=== PATIENT | male | born 1940 | race Caucasian/White ===

== ENCOUNTER 2019-06-15 07:08 | Day surgery (SDC) | payer MEDICARE ==
[~2019-06-15 07:08] MED LIST: DORZOLAMIDE HCL 2%/TIMOLOL MALEAT 0.5% OPH SOLN 10 ML OD PRN; KETOROLAC TROMETHAMINE 0.45% 4 DROP/0.4 ML DROPERETTE OD PRN
[2019-06-15] MEDS ORDERED: ONDANSETRON HCL INJ/PF 4 MG/2 ML SDV ONE (07:17)
[2019-06-15] MEDS ORDERED: FENTANYL CITRATE INJ/PF 100 MCG/2 ML AMPUL ONE (07:17)
[2019-06-15] MEDS ORDERED: MIDAZOLAM 2 MG/2 ML INJ ONE (07:17)
[2019-06-15] MEDS: TROPICAMIDE 1% OPH SOLN 15 ML OD PRN ×3 (07:38→07:58)
[2019-06-15] MEDS: CYCLOPENTOLATE 0.2%/PHENYLEPHRINE 1% OPH SOLN 2 ML OD PRN ×3 (07:38→07:58)
[2019-06-15] MEDS: BESIFLOXACIN HCL 0.6% OPH SUSP 5 ML BOTTLE OD PRN ×3 (07:38→08:31)
[2019-06-15] MEDS ORDERED: EPINEPHRINE INJ/PF 1 MG/1 ML AMPULE ONE (07:39)
[2019-06-15] MEDS ORDERED: LIDOCAINE 1%/PHENYLEPHRINE 1.5% 1 ML VIAL ONE (07:39)
[2019-06-15] MEDS: TETRACAINE HCL 0.5% OPH SOLN 4 ML OD PRN ×3 (07:39→08:12)
[2019-06-15] MEDS ORDERED: CHONDR SU A NA/HYALUR INTRAOC KIT (SURGICARE) ONE (07:39)
[2019-06-15] MEDS ORDERED: TOBRAMYCIN SULFATE/DEXAMETH OPH OINTMENT 3.5 GM ONE (07:39)
== END 2019-06-15 09:09 | disposition home or self-care (01) ==
LOC: SC 07:08
PROVIDERS: ATTEND Ophthalmology
DX: H25.11 Age-related nuclear cataract, right eye (principal); Z87.891 Personal history of nicotine dependence; E78.00 Pure hypercholesterolemia, unspecified; I10 Essential (primary) hypertension; I48.91 Unspecified atrial fibrillation; E11.9 Type 2 diabetes mellitus without complications; Z79.84 Long term (current) use of oral hypoglycemic drugs
CPT/HCPCS: 82962; 00142; 66984; V2632; J2250; J3490 ×2; A9270 ×2; J0171; J2405; J2370; 142; J3010

== ENCOUNTER 2020-07-19 10:18 | Inpatient (IN) | payer MEDICARE ==
[2020-07-19] MEDS ORDERED: IPRATROPIUM/ALBUTEROL 0.5-2.5 MG/3 ML AMPUL NEB ONE ×2 (10:36→10:41)
[2020-07-19] MEDS ORDERED: METHYLPREDNISOLONE INJ 125 MG/2 ML SDV IV ONE (10:42)
--- NOTE | 2020-07-19 10:56 | ER Document Report ---
Entered by MT BERG SCRIBE 07/19/20 1035 Acting as scribe for:GENIE CHILDERS MD ED Respiratory Problem - General Chief Complaint: Breathing Difficulty Stated Complaint: DIFFICULTY BREATHING Time Seen by Provider: 07/19/20 10:27 Mode of Arrival: Medic Information source: Patient, Relative, Emergency Med Personnel Cannot obtain history due to: Dementia Notes: This 80 year old demented male patient with hypertension, hyperlipidemia, diabetes mellitus type 2, and atrial fibrillation on Coumadin presents to the emergency department today with complaints of being "pale, diaphoretic, and short of breath" this morning per EMS. Patient himself is a terrible historian and is really unable to provide any meaningful history. He states "do not listen to my " and that is about the extent of the information he provides. It sounds like his called EMS this morning but he is unable to say why. Reportedly the patient was discharged from [facility] yesterday but he is not able to say why, but it was mentioned that he tested positive for COVID-19 yesterday. Patient's arrived and gave better history. Patient is normally alert and oriented. He spent 5 days at [facility] with Covid pneumonia and was discharged yesterday. Yesterday he was very weak and barely able to walk. She states when he laid down that evening around 11 PM his breathing started getting worse and has gotten progressively worse throughout the night. She states she was not sent home on any new medications. TRAVEL OUTSIDE OF THE [place] IN LAST 30 DAYS: Yes - Related Data Allergies/Adverse Reactions: No Known Allergies Allergy (Verified 06/15/19 07:41) Past Medical History - General Information source: Patient, Relative, Emergency Med Personnel Cannot obtain history due to: Other - Social History Smoking Status: Unknown if Ever Smoked Cigarette use (# per day): No Chew tobacco use (# tins/day): No Smoking Education Provided: No Frequency of alcohol use: None Drug Abuse: None Lives with: Spouse/Significant other Family History: Reviewed & Not Pertinent - Past Medical History Cardiac Medical History: Reports: Hx Atrial Fibrillation, Hx Hypercholesterolemia, Hx Hypertension Endocrine Medical History: Reports: Hx Diabetes Mellitus Type 2 Surgical Hx: Negative Review of Systems - Review of Systems -: Yes ROS unobtainable due to patient's medical condition - demented, terrible historian Physical Exam - Vital signs Vitals: Pulse Ox 86 L 07/19/20 10:21 - Notes Notes: Physical Exam: General: Alert, terrible historian. Saturating at 85% on non-rebreather mask. HEENT: Normocephalic. Atraumatic. PERRL. Extraocular movements intact. Oropharynx clear. Dry oral mucosa. Neck: Supple. Non-tender. Respiratory: Moderate respiratory distress. Rales and wheezing bilaterally. Accessory muscle usage. Cardiovascular: Irregularly irregular, tachycardic into the 120s. Abdominal: Normal Inspection. Non-tender. No distension. Normal Bowel Sounds. Back: No gross abnormalities. Extremities: Moves all four extremities. Upper extremities: Normal inspection. Normal ROM. Lower extremities: Pitting edema to feet/ankles bilaterally. Chronic skin thickening. Normal ROM. Neurological: Normal Speech. Demented, terrible historian. Psychological: Normal affect. Normal Mood. Skin: Chronic skin thickening and discoloration to bilateral lower extremities. Course - Vital Signs Vital signs: Temp Pulse Resp BP Pulse Ox 8 L 108/70 75 L 07/19/20 16:36 07/19/20 15:08 07/19/20 16:36 - Laboratory Results Result Diagrams: 07/19/20 14:13 07/19/20 10:32 Laboratory Results Interpreted: 07/19/20 07/19/20 07/19/20 10:32 10:32 10:32 PT D-Dimer Carbonic Acid ABG pH ABG pCO2 ABG pO2 ABG O2 Saturation Chloride 97 L Carbon Dioxide 32 H BUN 68 H Creatinine 1.72 H Est GFR ( Amer) 47 L Est GFR (MDRD) Non-Af 39 L Glucose 181 H Lactic Acid 4.3 H Magnesium 2.9 H Ferritin 947.00 H Total Bilirubin 7.3 H Direct Bilirubin 2.7 H AST 204 H ALT 67 H Alkaline Phosphatase 183 H Creatine Kinase 486 H CK-MB (CK-2) 10.20 H C-Reactive Protein 43.9 H Total Protein 8.3 H Urine Protein Urine Glucose (UA) Urine Blood 07/19/20 07/19/20 07/19/20 10:42 11:59 12:55 PT 38.6 H D-Dimer > 20.00 H* Carbonic Acid 1.02 L ABG pH 7.46 H ABG pCO2 33.8 L ABG pO2 46.3 L ABG O2 Saturation 85.1 L Chloride Carbon Dioxide BUN Creatinine Est GFR ( Amer) Est GFR (MDRD) Non-Af Glucose Lactic Acid Magnesium Ferritin Total Bilirubin Direct Bilirubin AST ALT Alkaline Phosphatase Creatine Kinase CK-MB (CK-2) C-Reactive Protein Total Protein Urine Protein 100 H Urine Glucose (UA) 50 H Urine Blood LARGE H Critical Laboratory Results Reviewed: Yes Attending or Supervising Physician who Reviewed Labs: GENIE CHILDERS - Radiology Results Radiology Results Interpreted: 07/19/20 12:22 Chest x-ray shows bilateral hazy opacities. Critical Radiology Results Reviewed: No Critical Results - EKG Interpretation by Me EKG shows normal: [place], Intervals, QRS Complexes, ST-T Waves Rate: Tachycardia Rhythm: A.Fib [place]/QRS: RBBB, LAHB/LAFB When compared to previous EKG there are: Previous EKG unavailable Critical Care Note - Critical Care Note Total time excluding time spent on procedures (mins): 40 Comments: At least 40 minutes spent evaluating the patient, reviewing prior records and comparing lab work and previous exams. Time spent treating the patient and reevaluations to evaluate response to treatments. Time spent discussing the case with the hospitalist for this critical care admission. Discharge - Discharge Clinical Impression: Pneumonia due to 2019-nCoV, Hypoxemia, Chronic atrial fibrillation, Dehydration Condition: Serious Disposition: ADMITTED INPATIENT Admitting Provider: Taty (Hospitalist) Unit Admitted: IMCU I personally performed the services described in the documentation, reviewed and edited the documentation which was dictated to the scribe in my presence, and it accurately records my words and actions.
[2020-07-19 11:09] LABS: ALKALINE PHOSPHATASE 183 U/L (38-126); ANION GAP 9 (5-19); ASPARTATE AMINO TRANSFERASE 204 U/L (17-59); BILIRUBIN,DIRECT 2.7 mg/dL (0.0-0.4); BILIRUBIN,TOTAL 7.3 mg/dL (0.2-1.3); BLOOD UREA NITROGEN 68 mg/dL (7-20); C-REACTIVE PROTEIN 43.9 mg/L (<10.0); CALCIUM 8.8 mg/dL (8.4-10.2); CARBON DIOXIDE 32 mmol/L (22-30); CHLORIDE 97 mmol/L (98-107); CREATINE KINASE 486 U/L (55-170); GLUCOSE 181 mg/dL (75-110); POTASSIUM 4.2 mmol/L (3.6-5.0); TOTAL PROTEIN 8.3 g/dL (6.3-8.2)
[2020-07-19 11:18] LABS: CREATINE KINASE MB 10.2 ng/mL (<4.55)
[2020-07-19] MEDS ORDERED: LORAZEPAM INJ 2 MG/1 ML VIAL IV ONE ×2 (11:20→13:00)
[2020-07-19 11:29] LABS: TROPONIN I 1.42 ng/mL
[2020-07-19 11:55] LABS: ARTERIAL BLOOD BASE EXCESS 0.5 mmol/L; ARTERIAL BLOOD FIO2 4L; ARTERIAL BLOOD H2CO3 1.02 mmol/L (1.05-1.35); ARTERIAL BLOOD HCO3 23.6 mmol/L (20-24); ARTERIAL BLOOD O2 SATURATION 85.1 % (94-98); ARTERIAL BLOOD PCO2 33.8 mmHg (35-45); ARTERIAL BLOOD PH 7.46 (7.35-7.45); ARTERIAL BLOOD PO2 46.3 mmHg (80-100); ARTERIAL BLOOD TOTAL CO2 24.6 mmol/L (23-27)
--- NOTE | 2020-07-19 12:10 | RADIOLOGY REPORT (SQ) ---
EXAM DESCRIPTION: CHEST SINGLE VIEW IMAGES COMPLETED DATE/TIME: 07/19/2020 11:28 am REASON FOR STUDY: sob COMPARISON: None. EXAM PARAMETERS: NUMBER OF VIEWS: 2 views. TECHNIQUE: 2 frontal radiographics of the chest acquired. RADIATION DOSE: NA LIMITATIONS: None. FINDINGS: LUNGS AND PLEURA: Bilateral hazy airspace and interstitial opacities. No large pleural ef fusion. No pneumothorax. MEDIASTINUM AND HILAR STRUCTURES: No masses. Contour normal. HEART AND VASCULAR STRUCTURES: Cardiomegaly. Normal vasculature. BONES: No acute findings. HARDWARE: None in the chest. OTHER: No other significant finding. IMPRESSION: Bilateral hazy airspace and interstitial opacities, which may represent pulmonary edema and/or infection. Cardiomegaly. TECHNICAL DOCUMENTATION: JOB ID: [id number] 2010 [employer]- All Rights Reserved Reading location - IP/workstation name: [email or web address]
[2020-07-19 12:14] LABS: PROTHROMBIN TIME 38.6 SEC (11.4-15.4)
[2020-07-19] MEDS ORDERED: NORMAL SALINE 1000 ML 1,000 ML IV ONE (12:23)
[2020-07-19 13:30] LABS: APPEARANCE,URINE CLOUDY; BILIRUBIN,URINE NEGATIVE (NEGATIVE); COLOR,URINE AMBER; GLUCOSE, URINE 50 mg/dL (NEGATIVE); KETONES,URINE NEGATIVE (NEGATIVE); LEUKOCYTE ESTERASE,URINE NEGATIVE (NEGATIVE); NITRITE,URINE NEGATIVE (NEGATIVE); PROTEIN,URINE 100 mg/dL (NEGATIVE); URINE SPECIFIC GRAVITY 1.025; UROBILINOGEN,URINE NEGATIVE mg/dL (<2.0)
[2020-07-19] MEDS ORDERED: MORPHINE SULFATE 10 MG/ML INJ IV ONE (14:25)
[2020-07-19 14:44] LABS: HEMATOCRIT 43.2 % (37.9-51.0); HEMOGLOBIN 14.2 g/dL (13.5-17.0); MEAN CORPUSCULAR HEMOGLOBIN 29.2 pg (27.0-33.4); MEAN CORPUSCULAR HGB CONC 32.8 g/dL (32.0-36.0); MEAN CORPUSCULAR VOLUME 89 fl (80-97); RED BLOOD COUNT 4.84 10^6/uL (4.35-5.55); RED CELL DISTRIBUTION WIDTH 20.2 % (11.5-14.0); WHITE BLOOD COUNT 12.3 10^3/uL (4.0-10.5)
[2020-07-19] MEDS ORDERED: FUROSEMIDE INJ/PF 40 MG/4 ML SDV IV ONE (14:54)
[2020-07-19 15:05] LABS: ABSOLUTE LYMPHOCYTES# (MANUAL) 1.6 10^3/uL (0.5-4.7); ABSOLUTE MONOCYTES # (MANUAL) 0.2 10^3/uL (0.1-1.4); BASOPHILS % (MANUAL) 0 % (0-2); EOSINOPHILS % (MANUAL) 0 % (0-6); LYMPHOCYTES % (MANUAL) 11 % (13-45); METAMYELOCYTES % (MANUAL) 1 % (0-1); MONOCYTES % (MANUAL) 2 % (3-13); NUCLEATED RED BLOOD CELLS 5 /100 WBC (0); SEGMENTED NEUTROPHILS % (MAN) 82 % (42-78); TOTAL CELLS COUNTED 100
[2020-07-19 15:07] LABS: ANISOCYTOSIS 2+
[2020-07-19 15:08] LABS: PLATELET COMMENT DECREASED; PLATELET LARGE PRESENT
[2020-07-19 15:11] LABS: POLYCHROMASIA 1+
[2020-07-19 15:12] LABS: POIKILOCYTOSIS 2+; SCHISTOCYTES 2+; TEAR DROP CELLS 1+
[2020-07-19 15:13] LABS: OVALOCYTES 1+
[2020-07-19 15:15] LABS: PLATELET COUNT 48 10^3/uL (150-450); PROMYELOCYTES % (MANUAL) 2 % (0)
[2020-07-19 15:17] LABS: SMUDGE CELLS PRESENT
[2020-07-19 15:21] LABS: ARTERIAL BLOOD BASE EXCESS -3.8 mmol/L; ARTERIAL BLOOD H2CO3 1.06 mmol/L (1.05-1.35); ARTERIAL BLOOD HCO3 20.5 mmol/L (20-24); ARTERIAL BLOOD O2 SATURATION 85.2 % (94-98); ARTERIAL BLOOD PCO2 35.1 mmHg (35-45); ARTERIAL BLOOD PH 7.38 (7.35-7.45); ARTERIAL BLOOD TOTAL CO2 21.6 mmol/L (23-27)
[2020-07-19 15:22] LABS: ARTERIAL BLOOD FIO2 100%
[2020-07-19] MEDS ORDERED: ACETAMINOPHEN 650 MG SUPP.RECT PR PRN (15:47)
[2020-07-19] MEDS ORDERED: MAGNESIUM HYDROXIDE SUSP 30 ML UDCUP PO PRN (15:47)
[2020-07-19] MEDS ORDERED: ONDANSETRON HCL INJ/PF 4 MG/2 ML SDV IV PRN (15:47)
[2020-07-19] MEDS ORDERED: RINGERS SOLUTION,LACTATED 1,000 ML IV PRN (15:47)
[2020-07-19] MEDS ORDERED: ACETAMINOPHEN 325 MG TABLET PO PRN (15:47)
[2020-07-19] MEDS ORDERED: MAG HYDROX/AL HYDROX/SIMETH SUSP 30 ML UDCUP PO PRN (15:47)
[2020-07-19 16:00] VITALS: BP 108/70
[2020-07-19] MEDS ORDERED: METOPROLOL TARTRATE PF/INJ 5 MG/5 ML SDV IV PRN (16:07)
[2020-07-19] MEDS ORDERED: GLUCAGON,HUMAN RECOMB 1 MG INJ IM PRN (16:09)
[2020-07-19] MEDS ORDERED: DEXTROSE 50%-WATER 25 GM/50 ML DISP.SYRIN IV PRN ×2 (16:09)
[2020-07-19] MEDS ORDERED: DEXTROSE 40% GEL 15 GM TUBE PO PRN ×2 (16:09)
--- NOTE | 2020-07-19 16:10 | PDOC H&P ---
History of Present Illness Admission Date/PCP: 07/19/20 12:56 LINUS SOLANO MD Patient complains of: Difficulty breathing History of Present Illness: SHERRY DE LA ROSA is a 80 year old male who was discharged from [facility] yesterday. His states he was comfortable on room air. He had soup for dinner and went to bed. During the night he began to have significant difficulty breathing. She also noticed that his hands and feet started to turn blue. She called EMS and the patient was brought to the hospital. He just went 5 days at [facility] for Covid pneumonia. He has got a history of atrial fibrillation, type 2 diabetes and hypertension as well as hypercholesterolemia. Chronically anticoagulated on warfarin for his fibrillation. He has chronic edema and likely some component of congestive heart failure. Because of the severity of his illness and the patient's condition I did have Dr. Douglas from the ICU evaluate the patient as well. Past Medical History Cardiac Medical History: Reports: Atrial Fibrillation, Hyperlipidema, Hypertension Denies: Myocardial Infarction Pulmonary Medical History: Denies: Asthma Neurological Medical History: Denies: Seizures Endocrine Medical History: Reports: Diabetes Mellitus Type 2 GI Medical History: Denies: Hepatitis, Hiatal Hernia Hematology: Denies: Anemia, Sickle Cell Disease Infectious Medical History: Reports: Other Infectious History Note: Just released from [facility] for pneumonia due to COVID-19 virus Past Surgical History Past Surgical History: Denies: Pacemaker Social History Information Source: Relative - Several discussions with his , [facility] Records - Discussion with the emergency department physician Lives with: Spouse/Significant other Smoking Status: Unknown if Ever Smoked Electronic Cigarette use?: No Frequency of Alcohol Use: None Hx Recreational Drug Use: No Hx Prescription Drug Abuse: No - Advance Directive Resuscitation Status: Do Not Resuscitate Surrogate healthcare decision maker:: Multiple discussions were held with the patient's . She reports that her did not want heroic measures but was torn with the thought of losing him. We did decide on DNR status. Family History Family History: Reviewed & Not Pertinent, Other - Unable to review family history with the patient as he was unable to provide any information at the time of this encounter. Parental Family History Reviewed: No Children Family History Reviewed: No Sibling(s) Family History Reviewed.: No Medication/Allergy Home Medications: Diltiazem HCl [Cardizem Cd] 240 mg PO DAILY 09/24/12 Atorvastatin Calcium [Lipitor 20 Mg Tablet] 20 mg PO QHS 09/29/12 Metformin HCl [Metformin HCl ER] 500 mg PO WSUPPER 06/09/19 Ascorbic Acid [Vitamin C 500 mg Tablet] 500 mg PO DAILY 07/19/20 Cholecalciferol (Vitamin D3) [Vitamin D3 1000 Unit Tablet] 1,000 unit PO DAILY 07/19/20 Lisinopril/Hydrochlorothiazide [Lisinopril-Hctz 20-12.5 mg Tab] 1 each PO DAILY 07/19/20 Multivitamin [Tab-A-Brenda (Multiple Vitamin) Tablet] 1 tab PO DAILY 07/19/20 Logan-3/Dha/Epa/Fish Oil [Fish Oil 1,200 mg Softgel] 1,200 mg PO DAILY 07/19/20 Warfarin Sodium [Jantoven 7.5 mg Tablet] 7.5 mg PO QHS 07/19/20 Allergies/Adverse Reactions: No Known Allergies Allergy (Verified 06/15/19 07:41) Review of Systems ROS unobtainable: Due to mental status Physical Exam Vital Signs: Temp Pulse Resp BP Pulse Ox 34 H 108/70 77 L 07/19/20 15:08 07/19/20 15:08 07/19/20 15:08 Intake & Output 07/18/20 07/19/20 07/20/20 06:59 06:59 06:59 Intake Total 1000 Balance 1000 Weight 111 kg General appearance: PRESENT: severe distress, well-developed, well-nourished. ABSENT: cooperative - Unable to participate in the encounter Head exam: PRESENT: atraumatic, normocephalic Eye exam: PRESENT: conjunctiva pink. ABSENT: scleral icterus Ear exam: PRESENT: normal external ear exam. ABSENT: bleeding, drainage Mouth exam: PRESENT: other - BiPAP mask in place Neck exam: ABSENT: carotid bruit, JVD, lymphadenopathy, tracheostomy Respiratory exam: PRESENT: accessory muscle use, decreased breath sounds, rales - Faint rales. Difficult to auscultate due to extreme tachypnea., tachypnea. ABSENT: wheezes Cardiovascular exam: PRESENT: irregular rhythm, tachycardia GI/Abdominal exam: PRESENT: diminished bowel sounds, soft. ABSENT: distended, tenderness Rectal exam: PRESENT: deferred Gentrourinary exam: PRESENT: indwelling catheter Extremities exam: PRESENT: +2 edema Neurological exam: PRESENT: alert, altered - Due to severity of clinical condition Skin exam: PRESENT: cyanosis - Dusky discoloration of fingers and toes Results Laboratory Results: 07/19/20 14:13 07/19/20 10:32 07/19/20 07/19/20 07/19/20 10:32 10:32 10:32 WBC Cancelled RBC Cancelled Hgb Cancelled Hct Cancelled MCV Cancelled MCH Cancelled MCHC Cancelled RDW Cancelled Plt Count Cancelled Seg Neutrophils % Cancelled Carbonic Acid HCO3/H2CO3 Ratio ABG pH ABG pCO2 ABG pO2 ABG HCO3 ABG O2 Saturation ABG Base Excess FiO2 Sodium 137.9 Potassium 4.2 Chloride 97 L Carbon Dioxide 32 H Anion Gap 9 BUN 68 H Creatinine 1.72 H Est GFR ( Amer) 47 L Glucose 181 H Lactic Acid 4.3 H Calcium 8.8 Magnesium 2.9 H Ferritin 947.00 H Total Bilirubin 7.3 H AST 204 H Alkaline Phosphatase 183 H C-Reactive Protein 43.9 H Total Protein 8.3 H Albumin 4.0 Urine Color Urine Appearance Urine pH Ur Specific [place] Urine Protein Urine Glucose (UA) Urine Ketones Urine Blood Urine Nitrite Ur Leukocyte Esterase Urine WBC (Auto) Urine RBC (Auto) 07/19/20 07/19/20 07/19/20 10:42 12:55 14:13 WBC 12.3 H RBC 4.84 Hgb 14.2 Hct 43.2 MCV 89 MCH 29.2 MCHC 32.8 RDW 20.2 H Plt Count 48 L Seg Neutrophils % Not Reportable Carbonic Acid 1.02 L HCO3/H2CO3 Ratio 23:1 ABG pH 7.46 H ABG pCO2 33.8 L ABG pO2 46.3 L ABG HCO3 23.6 ABG O2 Saturation 85.1 L ABG Base Excess 0.5 FiO2 4L Sodium Potassium Chloride Carbon Dioxide Anion Gap BUN Creatinine Est GFR ( Amer) Glucose Lactic Acid Calcium Magnesium Ferritin Total Bilirubin AST Alkaline Phosphatase C-Reactive Protein Total Protein Albumin Urine Color NICOLASA Urine Appearance CLOUDY Urine pH 5.0 Ur Specific [place] 1.025 Urine Protein 100 H Urine Glucose (UA) 50 H Urine Ketones NEGATIVE Urine Blood LARGE H Urine Nitrite NEGATIVE Ur Leukocyte Esterase NEGATIVE Urine WBC (Auto) 15 Urine RBC (Auto) 80 07/19/20 14:53 WBC RBC Hgb Hct MCV MCH MCHC RDW Plt Count Seg Neutrophils % Carbonic Acid 1.06 HCO3/H2CO3 Ratio 19:1 ABG pH 7.38 ABG pCO2 35.1 ABG pO2 50.0 L ABG HCO3 20.5 ABG O2 Saturation 85.2 L ABG Base Excess -3.8 FiO2 100% Sodium Potassium Chloride Carbon Dioxide Anion Gap BUN Creatinine Est GFR ( Amer) Glucose Lactic Acid Calcium Magnesium Ferritin Total Bilirubin AST Alkaline Phosphatase C-Reactive Protein Total Protein Albumin Urine Color Urine Appearance Urine pH Ur Specific [place] Urine Protein Urine Glucose (UA) Urine Ketones Urine Blood Urine Nitrite Ur Leukocyte Esterase Urine WBC (Auto) Urine RBC (Auto) 07/19/20 07/19/20 10:32 10:32 Creatine Kinase 486 H CK-MB (CK-2) 10.20 H Troponin I 1.420 Impressions: Chest X-Ray 07/19/20 10:21 IMPRESSION: Bilateral hazy airspace and interstitial opacities, which may represent pulmonary edema and/or infection. Cardiomegaly. Assessment and Plan - Diagnosis (1) Acute respiratory failure with hypoxia Is this a current diagnosis for this admission?: Yes (2) Severe acute respiratory syndrome coronavirus 2 (SARS-CoV-2) detected Is this a current diagnosis for this admission?: Yes (3) Pneumonia due to 2019-nCoV Is this a current diagnosis for this admission?: Yes (4) Longstanding persistent atrial fibrillation Is this a current diagnosis for this admission?: Yes (5) Atrial fibrillation with rapid ventricular response Is this a current diagnosis for this admission?: Yes (6) Acute liver failure Qualifiers: Hepatic coma status: without hepatic coma Qualified Code(s): K72.00 - Acute and subacute hepatic failure without coma Is this a current diagnosis for this admission?: Yes (7) Acute kidney injury Is this a current diagnosis for this admission?: Yes (8) Encephalopathy Is this a current diagnosis for this admission?: Yes - Plan Summary Summary: The patient presented initially on nasal cannula with a PO2 of 46 on 4 L nasal cannula. Over the course of several hours he required BiPAP and on BiPAP with an FiO2 of 100% his PO2 was 50. The patient was markedly tachypneic and it was difficult to keep oxygen saturations above 90%. The patient exhibited evidence of sepsis likely due to Covid pneumonia. Total bilirubin was up to 7.3 with a serum creatinine of 1.72. Lactic acid was 4.3. Ferritin was elevated at 947 with a C-reactive protein of 43.9. His D-dimer was greater than 28 with an INR of 4.0. He initially was normotensive but during the course of the evaluation his blood pressures began to drop. Despite a liter of fluid his pressures continued to slowly decline. In addition to the laboratory studies and respiratory status his chest x-ray suggested Covid pneumonia. I spoke to the patient's in 2 separate phone calls. In the first phone call she did reveal that her would not want heroic measures. In fact t he patient told the admitting nurse in the emergency department that he did not want "the tube ". The patient was made DO NOT RESUSCITATE at that time based on his wishes. After I had the repeat blood gas I called the patient's back. I explained that in my judgment the patient had very little chance of surviving whether he was intubated or not. I encouraged keeping the CODE STATUS as it was as a DNR. Without the possibility of intubation the patient was admitted to [facility] for Covid pneumonia with severe complications. - Time Time Spent with patient: 35 or more minutes Medications reviewed and adjusted accordingly: Yes Anticipated Discharge Disposition: Unknown Anticipated Discharge Timeframe: Unknown - Inpatient Certification Based on my medical assessment, after consideration of the patient's comorbidities, presenting symptoms, or acuity I expect that the services needed warrant INPATIENT care.: Yes I certify that my determination is in accordance with my understanding of Medicare's requirements for reasonable and necessary INPATIENT services [42 CFR 412.3e].: Yes Medical Necessity: Significant Comorbidiites Make Outpatient Treatment Too Risky, Need Close Monitoring Due to Risk of Patient Decompensation, Need For Continuous Telemetry Monitoring, Need for Nebulizer Therapy and Monitoring of Response, Need for IV Antibiotics, Risk of Complication if Not Cared For in [facility], Risk of Diagnosis Which Will Require Inpatient Eval/Care/Monitoring Post Hospital Care: D/C or Transfer Summary
--- NOTE | 2020-07-19 16:11 | PDOC CRITICAL CARE PROG REPORT ---
General Date:: 07/19/20 Hospital Day:: 1 Resuscitation Status: Do Not Resuscitate Events in the past 12 to 24 Hours:: Discharged from [facility] yesterday after a 5 day admission for COVID PNA. More SOB and obtunded now. Review of systems relevant to events:: Pulmonary, neurological. Reason for ICU Addmission:: Evaluation. - Medications: Medications reviewed and adjusted accordingly: Yes Vasopressors:: None Sedation:: None Physical Exam Vital Signs: Temp Pulse Resp BP Pulse Ox 34 H 108/70 77 L 07/19/20 15:08 07/19/20 15:08 07/19/20 15:08 Intake & Output 07/18/20 07/19/20 07/20/20 06:59 06:59 06:59 Intake Total 1000 Balance 1000 Weight 111 kg Weight/Height Weight 111 kg Height 6 ft 1 in General appearance: PRESENT: no acute distress, well-nourished Head exam: PRESENT: atraumatic, normocephalic Eye exam: PRESENT: conjunctiva pink, EOMI, PERRLA. ABSENT: scleral icterus Ear exam: PRESENT: normal external ear exam Mouth exam: PRESENT: moist, tongue midline Respiratory exam: PRESENT: clear to auscultation dilip, tachypnea, other - Retractions of neck muscles. ABSENT: rales, rhonchi, wheezes Cardiovascular exam: PRESENT: RRR. ABSENT: diastolic murmur, rubs, systolic murmur GI/Abdominal exam: PRESENT: normal bowel sounds, soft. ABSENT: distended, guarding, mass, organolmegaly, rebound, tenderness Rectal exam: PRESENT: deferred Gentrourinary exam: PRESENT: indwelling catheter Extremities exam: PRESENT: +2 edema, other - Bluish discoloration. Venous stasis. Neurological exam: PRESENT: altered - Said to be both demented and obtunded, other Skin exam: PRESENT: dry, intact, skin tears, warm. ABSENT: cyanosis, rash Laboratory/Radiographs Laboratory Results: 07/19/20 14:13 07/19/20 10:32 07/19/20 07/19/20 07/19/20 10:32 10:32 10:32 WBC Cancelled RBC Cancelled Hgb Cancelled Hct Cancelled MCV Cancelled MCH Cancelled MCHC Cancelled RDW Cancelled Plt Count Cancelled Seg Neutrophils % Cancelled Carbonic Acid HCO3/H2CO3 Ratio ABG pH ABG pCO2 ABG pO2 ABG HCO3 ABG O2 Saturation ABG Base Excess FiO2 Sodium 137.9 Potassium 4.2 Chloride 97 L Carbon Dioxide 32 H Anion Gap 9 BUN 68 H Creatinine 1.72 H Est GFR ( Amer) 47 L Glucose 181 H Lactic Acid 4.3 H Calcium 8.8 Magnesium 2.9 H Ferritin 947.00 H Total Bilirubin 7.3 H AST 204 H Alkaline Phosphatase 183 H C-Reactive Protein 43.9 H Total Protein 8.3 H Albumin 4.0 Urine Color Urine Appearance Urine pH Ur Specific [place] Urine Protein Urine Glucose (UA) Urine Ketones Urine Blood Urine Nitrite Ur Leukocyte Esterase Urine WBC (Auto) Urine RBC (Auto) 07/19/20 07/19/20 07/19/20 10:42 12:55 14:13 WBC 12.3 H RBC 4.84 Hgb 14.2 Hct 43.2 MCV 89 MCH 29.2 MCHC 32.8 RDW 20.2 H Plt Count 48 L Seg Neutrophils % Not Reportable Carbonic Acid 1.02 L HCO3/H2CO3 Ratio 23:1 ABG pH 7.46 H ABG pCO2 33.8 L ABG pO2 46.3 L ABG HCO3 23.6 ABG O2 Saturation 85.1 L ABG Base Excess 0.5 FiO2 4L Sodium Potassium Chloride Carbon Dioxide Anion Gap BUN Creatinine Est GFR ( Amer) Glucose Lactic Acid Calcium Magnesium Ferritin Total Bilirubin AST Alkaline Phosphatase C-Reactive Protein Total Protein Albumin Urine Color NICOLASA Urine Appearance CLOUDY Urine pH 5.0 Ur Specific [place] 1.025 Urine Protein 100 H Urine Glucose (UA) 50 H Urine Ketones NEGATIVE Urine Blood LARGE H Urine Nitrite NEGATIVE Ur Leukocyte Esterase NEGATIVE Urine WBC (Auto) 15 Urine RBC (Auto) 80 07/19/20 14:53 WBC RBC Hgb Hct MCV MCH MCHC RDW Plt Count Seg Neutrophils % Carbonic Acid 1.06 HCO3/H2CO3 Ratio 19:1 ABG pH 7.38 ABG pCO2 35.1 ABG pO2 50.0 L ABG HCO3 20.5 ABG O2 Saturation 85.2 L ABG Base Excess -3.8 FiO2 100% Sodium Potassium Chloride Carbon Dioxide Anion Gap BUN Creatinine Est GFR ( Amer) Glucose Lactic Acid Calcium Magnesium Ferritin Total Bilirubin AST Alkaline Phosphatase C-Reactive Protein Total Protein Albumin Urine Color Urine Appearance Urine pH Ur Specific [place] Urine Protein Urine Glucose (UA) Urine Ketones Urine Blood Urine Nitrite Ur Leukocyte Esterase Urine WBC (Auto) Urine RBC (Auto) 07/19/20 07/19/20 10:32 10:32 Creatine Kinase 486 H CK-MB (CK-2) 10.20 H Troponin I 1.420 Impressions: Chest X-Ray 07/19/20 10:21 IMPRESSION: Bilateral hazy airspace and interstitial opacities, which may represent pulmonary edema and/or infection. Cardiomegaly. All labs, radiographs, diagnostic studies and EKGs were personally reviewed: Yes In addition, reports of radiographic and diagnostic studies were read: Yes Assessment and Plan - Diagnosis (1) Pneumonia due to 2019-nCoV Is this a current diagnosis for this admission?: Yes Plan: He was recently hospitalized, discharged yesterday. Worse today. No sign of aspiration. He has HTN, DM-II which are risk factors for COVID mortality. He is hypoxic by O2 saturation and by ABG. (2) Encephalopathy Is this a current diagnosis for this admission?: Yes Plan: This is likely metabolic. There is a dementia component and he has received a small dose of MSO4. (3) Chronic atrial fibrillation Is this a current diagnosis for this admission?: Yes Plan: On coumadin with an INR of 4. (4) Hypoxemia Is this a current diagnosis for this admission?: Yes Plan: He is hypoxic by both ABG and O2 saturation probe. However Dr. Posey talked to the , which I witnessed, and decided he has sufferred enough and is now DNR Plan Summary: With his age and risk factors his mortality with COVID is quite high. DNR status precludes intubation. With no escalation of care there is no need for an ICU placement. Critical Time Critical Time (minutes): 40 Level of Care: IMCU Anticipated discharge: Hospice Anticipated DC Timeframe: Other -: 1. The care of a critical patient is a dynamic process. This note is a advertising representative synopsis but static in nature. The timeframe for treatments given in order is not necessarily the actual time these treatments may have been done. 2. This patient requires critical care secondary to ongoing requirements for therapy not offered or safe outside the critical care environment. Transfer to a lower level of care will result in altered life or limb morbidity and mortality. 3. Multidisciplinary rounds completed. 4. ABCDE bundle addressed.
[2020-07-19 16:42] LABS: INTERNATIONAL RATION (INR) 4.85; PROTHROMBIN TIME 44.7 SEC (11.4-15.4)
[2020-07-19] MEDS ORDERED: MORPHINE SULFATE 10 MG/ML INJ IV PRN (16:45)
[2020-07-19] MEDS ORDERED: FUROSEMIDE INJ/PF 20 MG/2 ML SDV IV SCH (18:00)
[2020-07-19] MEDS ORDERED: DILTIAZEM HCL 60 MG TABLET PO SCH (18:00)
[2020-07-19] MEDS ORDERED: ASCORBIC ACID 500 MG TABLET PO SCH (18:00)
[2020-07-19] MEDS ORDERED: LEVALBUTEROL HCL NEB 1.25 MG/3 ML AMPUL NEB SCH (20:00)
[2020-07-19] MEDS ORDERED: INSULIN REG, HUMAN 100 UNIT/ML 3 ML VIAL (PYX) SUBCUT SCH (22:00)
[2020-07-19] MEDS ORDERED: ATORVASTATIN CALCIUM 20 MG TABLET PO SCH (22:00)
[2020-07-19] MEDS ORDERED: METHYLPREDNISOLONE INJ 125 MG/2 ML SDV IV SCH (22:00)
--- NOTE | 2020-07-19 22:00 | PDOC PROGRESS REPORT ---
Subjective Date:: 07/19/20 Subjective:: I was called to the patient's room as the patient was exhibiting worsening hypox ia, decreasing blood pressure and decreasing pulse. Reason For Visit: PNEUMONIA DUE TO COVID 19,SEPSIS DUE TO COVID 19 Physical Exam Vital Signs: Temp Pulse Resp BP Pulse Ox 8 L 108/70 75 L 07/19/20 16:36 07/19/20 15:08 07/19/20 16:36 Intake & Output 07/18/20 07/19/20 07/20/20 06:59 06:59 06:59 Intake Total 1000 Balance 1000 Weight 111 kg General appearance: PRESENT: severe distress Respiratory exam: PRESENT: decreased breath sounds, tachypnea, other - Severely increased work of breathing Cardiovascular exam: PRESENT: bradycardia GI/Abdominal exam: PRESENT: diminished bowel sounds, distended, soft Neurological exam: PRESENT: altered - Unresponsive to verbal stimuli Focused psych exam: PRESENT: other - Unable to assess as patient could not participate Skin exam: PRESENT: cyanosis - Hands and feet with cyanotic discoloration. Lips with cyanotic discoloration. Results Laboratory Results: 07/19/20 14:13 07/19/20 10:32 07/19/20 07/19/20 07/19/20 10:32 10:32 10:32 WBC Cancelled RBC Cancelled Hgb Cancelled Hct Cancelled MCV Cancelled MCH Cancelled MCHC Cancelled RDW Cancelled Plt Count Cancelled Seg Neutrophils % Cancelled Carbonic Acid HCO3/H2CO3 Ratio ABG pH ABG pCO2 ABG pO2 ABG HCO3 ABG O2 Saturation ABG Base Excess FiO2 Sodium 137.9 Potassium 4.2 Chloride 97 L Carbon Dioxide 32 H Anion Gap 9 BUN 68 H Creatinine 1.72 H Est GFR ( Amer) 47 L Glucose 181 H Lactic Acid 4.3 H Calcium 8.8 Magnesium 2.9 H Ferritin 947.00 H Total Bilirubin 7.3 H AST 204 H Alkaline Phosphatase 183 H C-Reactive Protein 43.9 H Total Protein 8.3 H Albumin 4.0 Urine Color Urine Appearance Urine pH Ur Specific [place] Urine Protein Urine Glucose (UA) Urine Ketones Urine Blood Urine Nitrite Ur Leukocyte Esterase Urine WBC (Auto) Urine RBC (Auto) 07/19/20 07/19/20 07/19/20 10:42 12:55 14:13 WBC 12.3 H RBC 4.84 Hgb 14.2 Hct 43.2 MCV 89 MCH 29.2 MCHC 32.8 RDW 20.2 H Plt Count 48 L Seg Neutrophils % Not Reportable Carbonic Acid 1.02 L HCO3/H2CO3 Ratio 23:1 ABG pH 7.46 H ABG pCO2 33.8 L ABG pO2 46.3 L ABG HCO3 23.6 ABG O2 Saturation 85.1 L ABG Base Excess 0.5 FiO2 4L Sodium Potassium Chloride Carbon Dioxide Anion Gap BUN Creatinine Est GFR ( Amer) Glucose Lactic Acid Calcium Magnesium Ferritin Total Bilirubin AST Alkaline Phosphatase C-Reactive Protein Total Protein Albumin Urine Color NICOLASA Urine Appearance CLOUDY Urine pH 5.0 Ur Specific [place] 1.025 Urine Protein 100 H Urine Glucose (UA) 50 H Urine Ketones NEGATIVE Urine Blood LARGE H Urine Nitrite NEGATIVE Ur Leukocyte Esterase NEGATIVE Urine WBC (Auto) 15 Urine RBC (Auto) 80 07/19/20 14:53 WBC RBC Hgb Hct MCV MCH MCHC RDW Plt Count Seg Neutrophils % Carbonic Acid 1.06 HCO3/H2CO3 Ratio 19:1 ABG pH 7.38 ABG pCO2 35.1 ABG pO2 50.0 L ABG HCO3 20.5 ABG O2 Saturation 85.2 L ABG Base Excess -3.8 FiO2 100% Sodium Potassium Chloride Carbon Dioxide Anion Gap BUN Creatinine Est GFR ( Amer) Glucose Lactic Acid Calcium Magnesium Ferritin Total Bilirubin AST Alkaline Phosphatase C-Reactive Protein Total Protein Albumin Urine Color Urine Appearance Urine pH Ur Specific [place]az Urine Protein Urine Glucose (UA) Urine Ketones Urine Blood Urine Nitrite Ur Leukocyte Esterase Urine WBC (Auto) Urine RBC (Auto) 07/19/20 07/19/20 10:32 10:32 Creatine Kinase 486 H CK-MB (CK-2) 10.20 H Troponin I 1.420 Impressions: Chest X-Ray 07/19/20 10:21 IMPRESSION: Bilateral hazy airspace and interstitial opacities, which may represent pulmonary edema and/or infection. Cardiomegaly. Assessment and Plan - Diagnosis (1) Acute respiratory failure with hypoxia Is this a current diagnosis for this admission?: Yes (2) Severe acute respiratory syndrome coronavirus 2 (SARS-CoV-2) detected Is this a current diagnosis for this admission?: Yes (3) Pneumonia due to 2019-nCoV Is this a current diagnosis for this admission?: Yes (4) Longstanding persistent atrial fibrillation Is this a current diagnosis for this admission?: Yes (5) Atrial fibrillation with rapid ventricular response Is this a current diagnosis for this admission?: Yes (6) Acute liver failure Qualifiers: Hepatic coma status: without hepatic coma Qualified Code(s): K72.00 - Acute and subacute hepatic failure without coma Is this a current diagnosis for this admission?: Yes (7) Acute kidney injury Is this a current diagnosis for this admission?: Yes (8) Encephalopathy Is this a current diagnosis for this admission?: Yes - Plan Summary Summary: The patient presented initially on nasal cannula with a PO2 of 46 on 4 L nasal cannula. Over the course of several hours he required BiPAP and on BiPAP with an FiO2 of 100% his PO2 was 50. The patient was markedly tachypneic and it was difficult to keep oxygen saturations above 90%. The patient exhibited evidence of sepsis likely due to Covid pneumonia. Total bilirubin was up to 7.3 with a serum creatinine of 1.72. Lactic acid was 4.3. Ferritin was elevated at 947 with a C-reactive protein of 43.9. His D-dimer was greater than 28 with an INR of 4.0. He initially was normotensive but during the course of the evaluation his blood pressures began to drop. Despite a liter of fluid his pressures continued to slowly decline. In addition to the laboratory studies and respiratory status his chest x-ray suggested Covid pneumonia. I spoke to the patient's in 2 separate phone calls. In the first phone call she did reveal that her would not want heroic measures. In fact the patient told the admitting nurse in the emergency department that he did not want "the tube ". The patient was made DO NOT RESUSCITATE at that time based on his wishes. After I had the repeat blood gas I called the patient's back. I explained that in my judgment the patient had very little chance of surviving whether he was intubated or not. I encouraged keeping the CODE STATUS as it was as a DNR. Without the possibility of intubation the patient was admitted to [facility] for Covid pneumonia with severe complications. 07/19/2020-critical care visit While reassessing the patient the patient's family had arrived. I sat with the family and reviewed the short but critical course since his admission. I explained the nature of his comorbidities and the fact that I did not believe he would survive this regardless of any treatment intervention. We reviewed the differences between DNR and comfort measures. I then accompanied the patient's and one of his sons to the bedside. At that point the patient's oxygen sa turation was mostly in the 70s despite FiO2 of 100% on BiPAP at 16/8. His respiratory rate was between 30 and 40 consistently. While at the bedside the nurse made me aware of the fact that the patient's pulse was dropping as well as his oxygen saturation. A heavy duty mechanic was called and was able to give last rights the patient over the phone. While this was going on I stepped out of the room to review the monitoring specialist and laboratory results and imaging studies prior to the patient arriving to the third floor. We then looked at the trending pressures, pulse oximetry readings, respiratory rate and heart rate. The family engaged in further discussion. At the bedside they were in fact aware of the dropping respiratory rate, oxygen saturation and pulse rate. The patient was clearly nonresponsive not only to verbal stimulation but to painful stimulation. At that point the patient's family agreed that comfort measures would be best. Due to the patient's precipitous decline there was no indication for any medication as he was actively dying at the time. The patient stepped out of the room. I had some further discussion about what to expect with comfort measures. I walk back to the nurses station to check on the patient and at that point the patient went flatline with no spontaneous respirations or heart rate. I went back and informed the family. - Time Total Critical Time (Minutes): 95 Medications reviewed and adjusted accordingly: Yes Anticipated Discharge Disposition: Anticipated Discharge Timeframe: within 24 hours
--- NOTE | 2020-07-19 22:02 | Death Summary ---
Summary Date : 07/19/20 Time of :: 17:42 Autopsy: No Resuscitation Status: Comfort Measures Only Primary Care Provider: Taty - Final Diagnosis (1) Acute respiratory failure with hypoxia Is this a current diagnosis for this admission?: Yes (2) Severe acute respiratory syndrome coronavirus 2 (SARS-CoV-2) detected Is this a current diagnosis for this admission?: Yes (3) Pneumonia due to 2019-nCoV Is this a current diagnosis for this admission?: Yes (4) Longstanding persistent atrial fibrillation Is this a current diagnosis for this admission?: Yes (5) Atrial fibrillation with rapid ventricular response Is this a current diagnosis for this admission?: Yes (6) Acute liver failure Is this a current diagnosis for this admission?: Yes (7) Acute kidney injury Is this a current diagnosis for this admission?: Yes (8) Encephalopathy Is this a current diagnosis for this admission?: Yes Hospital Course:: The patient had a progressive and rapid decline during his hospitalization. Please see the history and physical as well as the critical care note for details.
[2020-07-20] MEDS ORDERED: PANTOPRAZOLE SODIUM 20 MG TABLET.DR PO SCH (06:00)
[2020-07-20 07:29] LABS: D-DIMER > 20.00 ug/mL (0.00-0.50)
[2020-07-20] MEDS ORDERED: DILTIAZEM HCL 240 MG PO SCH (10:00)
[2020-07-20] MEDS ORDERED: ASPIRIN 81 MG TABLET, ENT COATED PO SCH (10:00)
[2020-07-20] MEDS ORDERED: CHOLECALCIFEROL (D3) 1,000 UNIT (25 MCG) TABLET PO SCH (10:00)
[2020-07-20] MEDS ORDERED: ZINC SULFATE 220 MG CAPSULE PO SCH (10:00)
[2020-07-20] MEDS ORDERED: DILTIAZEM HCL 240 MG CAPSULE.CR PO SCH (10:00)
[2020-07-20 10:17] LABS: PATH REVIEW PATHOLOGIST REVIEWED
--- NOTE | 2020-07-20 13:24 | EKG REPORT ---
SEVERITY:- ABNORMAL ECG - ATRIAL FIBRILLATION, V-RATE [id number] RBBB AND LPFB : Confirmed by: Sergei Murray 20-Jul-2020 13:23:36
== END 2020-07-19 17:42 | disposition left against medical advice (07) | DRG 871 ==
LOC: ER 10:18 → EH 12:56 → 3N 16:54
PROVIDERS: ADMIT Hospitalist; ATTEND Hospitalist
DX: A41.89 Other specified sepsis (principal); U07.1 COVID-19; J80 Acute respiratory distress syndrome; J12.89 Other viral pneumonia; K72.00 Acute and subacute hepatic failure without coma; G93.41 Metabolic encephalopathy; I48.11 Longstanding persistent atrial fibrillation; N17.9 Acute kidney failure, unspecified; R65.20 Severe sepsis without septic shock; E86.0 Dehydration; E11.9 Type 2 diabetes mellitus without complications; E78.5 Hyperlipidemia, unspecified; I10 Essential (primary) hypertension; Z51.5 Encounter for palliative care; Z66 Do not resuscitate; Z79.01 Long term (current) use of anticoagulants; Z79.84 Long term (current) use of oral hypoglycemic drugs; Z79.899 Other long term (current) drug therapy
CPT/HCPCS: 36415; 71045; 80053; 81001; 82550; 82553; 82728; 82803; 82962; 83605; 83735; 84484; 85025; 85379; 85610; 86140; 87040; 93005; 93010; 94640; 96374; 96375; 99233; 99285; J2060; J2270; J2930; J7030